=== PATIENT | female | born 1995 | race Caucasian/White ===

== ENCOUNTER → 2024-12-15 | Outpatient (CLI) | payer BC, SELFPAY ==
--- NOTE | 2024-12-15 12:47 | XR_ITS ---
Examination: Complete OB ultrasound, less than 14 weeks, transabdominal Date and time of exam: December 15, 2024 1304 hours INDICATIONS: Positive home test one week ago Technique: Obstetrical ultrasound images less than 14 weeks performed via transabdominal imaging Findings: A normal shaped single intrauterine gestation is present in the uterus. pole 2.3 cm corresponds to 9 week 0 day gestational age Cardiac motion 166 BPM Subchorionic hemorrhage 14 x 21 mm posterior and 30 x 31 mm anterior Ultrasonographic survey of visible and placental structures unremarkable. Amniotic fluid volume appears appropriate for this estimated gestational age. Right ovary 3.0 cm arterial flow follicular cyst Left ovary 1.9 cm arterial flow IMPRESSION: Viable intrauterine gestation 9 weeks 0 days Given the subchorionic hemorrhages, recommend short-term follow-up pelvic sonography.
== END | disposition home or self-care (01) ==
PROVIDERS: PCP Obstetrics & Gynecology; Referring Provider Obstetrics & Gynecology; Visit Provider Obstetrics & Gynecology
DX: Z34.90 Encounter for supervision of normal pregnancy, unspecified, unspecified trimester (principal)
CPT/HCPCS: 76801

== ENCOUNTER 2025-01-09 11:04 | Outpatient (AMB) | payer BC, SELFPAY ==
--- NOTE | 2025-01-09 11:04 | AMB.OBVISIT ---
Vital Signs 01/09/25 11:23 Height 1.52 m Height Method Stated Weight 44.225 kg Weight Measurement Method Standing Scale BMI 19.1 BP 100/68 Blood Pressure Source Automatic Cuff Blood Pressure Location Left Upper Arm Position Sitting Respiration 16 Pulse 103 H Pulse Source Monitor Temp 97.1 F Temp Source Oral Pulse Oximetry (%) 97 Oxygen Delivery Method Room Air Allergies/Home Meds Allergies & Medications Allergies No Known Allergies Allergy (Verified 01/09/25 11:06) Medication Reconciliation ondansetron HCl 4 mg tablet 4 mg PO Q6H PRN nausea and vomiting #30 tabs 12/15/24 [Rx Confirmed 01/09/25] promethazine 12.5 mg tablet 12.5 mg PO Q4H PRN nausea and vomiting #20 tabs 12/15/24 [Rx Confirmed 01/09/25] Intake Visit Data Collection New Patient or Established: Established Patient (seen at [facility] within 3 years) Reason for Visit:: 4-week OB visit Seen by Clinical Staff ONLY (RN/MA): No Gas Substation Operator Required: No Do You Feel Safe at Home: Yes Authorities Contacted: N/A PCP or OBGYN visit in last 3 months: Yes Date of Last PCP or OBGYN visit: 12/15/24 Hx Now: Yes Are you currently on any form of Control: No Last menstrual period: 10/11/24 Pain Present Currently: No Pain Scale Used: Ayala-[place]gl[place]/Numerical Pain scale:: 0 Smoking Status Smoking Status: Never smoker Questionnaires Covid-19 Vaccine Questionnaire Has patient been vacinated for Covid-19 Have you been vacinated for Covid-19: Yes PHQ-9 PHQ-2 Over the last 2 weeks, how often have you been bothered by any of the following problems? 1. Little interest or pleasure in doing things: not at all (due to nausea) 2. Feeling down, depressed, or hopeless: not at all Total score: 0 PHQ-9 3. Trouble falling or staying asleep, or sleeping too much: Not at all 4. Feeling tired or having little energy: Not at all 5. Poor appetite or overeating: Not at all 6. Feeling bad about yourself - or that you are a failure or have let yourself or your family down: Not at all 7. Trouble concentrating on things, such as reading the newspaper or watching television: Not at all 8. Moving or speaking so slowly that other people could have noticed? - Or the opposite - being so fidgety or restless that you have been moving around a lot more than usual: not at all 9. Thoughts that you would be better off or of hurting yourself in some way: Not at all Total score: 0 Source: Developed by Drs. Tj Bernal, Dory Mir, Manas Whitehead and colleagues, with an educational jessica from [employer]. 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 Smoking Status: Never smoker Alcohol History Alcohol Intake: Former Alcohol Intake Frequency: holidays/special occasions only Alcohol Intake Frequency Other:: [id number] Substance Use History Substance Use: no Domestic Abuse History Do You Feel Safe at Home: Yes Past Medical History Past Medical History Have you ever been diagnosed with any of the following: Neurological Problems Cerebrovascular Accident (CVA): No Transient Ischemic Attacks (TIA): No Dementia: No Alzheimer's Disease: No Parkinson's Disease: No Brain Tumor: No Meningitis: No Seizures: No Epilepsy: No Multiple Sclerosis: No Cerebral Palsy: No Amyotrophic Lateral Sclerosis (ALS/Tianna Gehrig's): No Guillain-Anson Syndrome: No Spina Bifida: No Paralysis: No Peripheral Neuropathy: No Mercado's Palsy: No Subdural Hematoma: No Migraine: No Head Trauma: No Spinal Cord Injury: No Traumatic Brain Injury: No Cardiology Problems Myocardial Infarction: No Cardiac Arrhythmia: No Atrial Fibrillation: No Angina: No Heart Murmur: No Coronary Artery Disease: No Atherosclerotic Heart Disease: No Peripheral Vascular Disease: No Hypercholesterolemia: No Respiratory Problems Chronic Obstructive Pulmonary Disease (COPD): No Stomache/Intestinal Problems Liver Cancer: No Hepatitis: No Cirrhosis: No Genital/Urinary Problems Chronic Kidney Disease: No Renal Disease: No Kidney Stones: No Reproductive Problems Breast Cancer: No Endometriosis: No Fibroids: No Genital Herpes: No Gonorrhea: No Pelvic Inflammatory Disease: No Polycystic Ovarian Syndrome: No Previous Pregnancies: Yes ( s/p x 2 in past. Has a 3 y/o son and 8 y/o daughter) Syphilis: No Musculoskeletal Problems Muscular Dystrophy: No Myasthenia Gravis: No Marfan's Syndrome: No Bone Cancer: No Arthritis: No Head,Eye,Nose,Throat Problems Cataracts: No Glaucoma: No Blind: No Retinal Detachment: No Endocrine Problems Diabetes Mellitus Type 1: No Diabetes Mellitus Type 2: No Hypoglycemia: No Karl's Syndrome: No Blakeslee's Disease: No Hyperthyroidism: No Hypothyroidism: No Thyroid Cancer: No Blood Problems Anemia: No Leukemia: No Hemophilia: No Thalassemia: No Sickle Cell Disease: No Clotting Problems: No Psychologic Problems Schizophrenia: No Recreational Drug Use: No Bipolar Disorder: No Depression: No Depression: No Post Traumatic Stress Disorder: No Other Problems Hospitalization: Yes Surgical History Angioplasty: No Appendectomy: No Bariatric Surgery: No History of Present Illness HPI Narrative Patient is a 29-year-old -0-0-2 presents for a 4-week OB visit due date is 07/22/2024 she is about 12-3/7 weeks today she stated that she went to the ER in [place] 12/18/2023 secondary severe nausea and vomiting she did bring her lab work sounds like she had 2 L of IV fluids and felt better. I placed the patient on Zofran and Phenergan before bed however they gave her Diclegis. Patient states the Diclegis to right before bed is working. She is feeling better. We still need to get her labs drawn. She does not want to know the gender at this baby. Review of Systems Constitutional Constitutional: Reports system reviewed and no additional complaints, except as documented Comments: Patient continues to have nausea but is better with the Diclegis right before bed. Patient gets very tired with the Diclegis but not nauseous. Visit DEDRA Calculator Estimated Delivery Date Method Current WG Current Estimate 07/21/25 LMP (Certain) 12w 3d Initial Weight: Not Recorded Date <del>?</del> EGA Weight Edema CTX Effacement BP Fundal ht Pres Dilation Effacement Station Visit Note Alb Glu FHR Mov 12/15/24 <del>?</del> 8w 6d 44.962 kg absent absent 105/76 140 01/09/25 <del>?</del> 12w 3d 44.225 kg 100/68 12 154 Exam General Limitations: no limitations General Appearance: alert, in no apparent distress, cooperative, healthy appearing and well groomed Assessment & Plan Diagnosis / Problem List (1) Nausea and vomiting during : Status: Acute Plan: Patient on Diclegis and this is much improved. (2) : Status: Acute Qualifiers: Weeks of gestation: 9 weeks Qualified Code(s): Z3A.09 - 9 weeks gestation of Plan: In need lab work on chart. Additional Plan Follow Up: 4 Weeks Office Procedures OB Clinic LOC & Office Proc's Nursing/Assessment Patient Status: Established Patient OB Clinic Nursing Assessment: Medication Reconciliation, Update PMH in EMR and Vital Signs OB Clinic Coordination of Care: Complex Care and Chronic Disease 1-5, Consent,records obtained, informed consent, Education Simp Pt/Fam, Lab and Imaging orders and Staff clarify orders Special Needs: Heart tones Established Patient Charge Established Patient Point Assignment: 130 Established Patient Point Charge: EP Level 4 (120-155) Bedside Ultrasounds US Transabdominal >14 weeks at bedside: Yes
[2025-01-09 11:23] VITALS: BP 100/68; PULSE 103; RESP 16; TEMP 36.2; O2SAT 97; BMI 19.1
== END 2025-01-09 11:56 | disposition home or self-care (01) ==
LOC: HODSOBC 11:04
PROVIDERS: Supervising Provider Obstetrics & Gynecology; Visit Provider Obstetrics & Gynecology
DX: O09.891 Supervision of other high risk pregnancies, first trimester (principal); Z3A.12 12 weeks gestation of pregnancy; O21.9 Vomiting of pregnancy, unspecified
CPT/HCPCS: 76805; 99214; G0463

== ENCOUNTER 2025-02-05 15:38 | Outpatient (AMB) | payer BC, SELFPAY ==
[2025-02-05 15:50] VITALS: BP 105/72; PULSE 89; RESP 16; TEMP 36.3; O2SAT 100
--- NOTE | 2025-02-05 15:50 | OBCLNT_ITS ---
Vital Signs 02/05/25 15:50 Height 1.52 m Height Method Stated Weight 46.266 kg Weight Measurement Method Standing Scale BMI 20.0 BP 105/72 Blood Pressure Source Automatic Cuff Blood Pressure Location Left Upper Arm Position Sitting Respiration 16 Pulse 89 Pulse Source Monitor Temp 97.4 F Temp Source Oral Pulse Oximetry (%) 100 Oxygen Delivery Method Room Air Allergies/Home Meds Allergies & Medications Allergies No Known Allergies Allergy (Verified 02/05/25 15:51) Medication Reconciliation ondansetron HCl 4 mg tablet 4 mg PO Q6H PRN nausea and vomiting #30 tabs 12/15/24 [Rx Confirmed 02/05/25] promethazine 12.5 mg tablet 12.5 mg PO Q4H PRN nausea and vomiting #20 tabs 12/15/24 [Rx Confirmed 02/05/25] doxylamine 10 mg-pyridoxine (vit B6) 10 mg tablet,delayed release (Diclegis) 1 tab PO TID #90 tabs 01/26/25 [Rx Confirmed 02/05/25] Intake Visit Data Collection New Patient or Established: Established Patient (seen at [facility] within 3 years) Reason for Visit:: care Seen by Clinical Staff ONLY (RN/MA): No Nuclear Medicine Pet Ct Technologist Required: No Do You Feel Safe at Home: Yes Authorities Contacted: N/A PCP or OBGYN visit in last 3 months: Yes Hx Now: Yes Are you currently on any form of Control: No Pain Present Currently: No Pain Scale Used: Ayala-[place]gl[place]/Numerical Pain scale:: 0 Smoking Status Smoking Status: Never smoker Questionnaires Covid-19 Vaccine Questionnaire Has patient been vacinated for Covid-19 Have you been vacinated for Covid-19: Yes PHQ-9 PHQ-2 Over the last 2 weeks, how often have you been bothered by any of the following problems? 1. Little interest or pleasure in doing things: not at all (due to nausea) 2. Feeling down, depressed, or hopeless: not at all Total score: 0 PHQ-9 3. Trouble falling or staying asleep, or sleeping too much: Not at all 4. Feeling tired or having little energy: Not at all 5. Poor appetite or overeating: Not at all 6. Feeling bad about yourself - or that you are a failure or have let yourself or your family down: Not at all 7. Trouble concentrating on things, such as reading the newspaper or watching television: Not at all 8. Moving or speaking so slowly that other people could have noticed? - Or the opposite - being so fidgety or restless that you have been moving around a lot more than usual: not at all 9. Thoughts that you would be better off or of hurting yourself in some way: Not at all Total score: 0 Source: Developed by Drs. Tj Bernal, Dory Mir, Manas Whitehead and colleagues, with an educational jessica from [employer]. 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 Tobacco History Smoking Status: Never smoker Second Hand Smoke Exposure: No Alcohol History Alcohol Intake: Former Alcohol Intake Frequency: holidays/special occasions only Alcohol Intake Frequency Other:: [id number] Substance Use History Substance Use: no Domestic Abuse History Do You Feel Safe at Home: Yes Past Medical History Past Medical History Have you ever been diagnosed with any of the following: Neurological Problems Cerebrovascular Accident (CVA): No Transient Ischemic Attacks (TIA): No Dementia: No Alzheimer's Disease: No Parkinson's Disease: No Brain Tumor: No Meningitis: No Seizures: No Epilepsy: No Multiple Sclerosis: No Cerebral Palsy: No Amyotrophic Lateral Sclerosis (ALS/Tianna Gehrig's): No Guillain-Randolph Syndrome: No Spina Bifida: No Paralysis: No Peripheral Neuropathy: No Mercado's Palsy: No Subdural Hematoma: No Migraine: No Head Trauma: No Spinal Cord Injury: No Traumatic Brain Injury: No Cardiology Problems Myocardial Infarction: No Cardiac Arrhythmia: No Atrial Fibrillation: No Angina: No Heart Murmur: No Coronary Artery Disease: No Atherosclerotic Heart Disease: No Peripheral Vascular Disease: No Hypercholesterolemia: No Respiratory Problems Chronic Obstructive Pulmonary Disease (COPD): No Stomache/Intestinal Problems Liver Cancer: No Hepatitis: No Cirrhosis: No Genital/Urinary Problems Renal Disease: No Kidney Stones: No Reproductive Problems Breast Cancer: No Endometriosis: No Fibroids: No Genital Herpes: No Gonorrhea: No Pelvic Inflammatory Disease: No Polycystic Ovarian Syndrome: No Previous Pregnancies: Yes ( s/p x 2 in past. Has a 3 y/o son and 8 y/o daughter) Syphilis: No Musculoskeletal Problems Muscular Dystrophy: No Myasthenia Gravis: No Marfan's Syndrome: No Bone Cancer: No Arthritis: No Head,Eye,Nose,Throat Problems Cataracts: No Glaucoma: No Blind: No Retinal Detachment: No Endocrine Problems Diabetes Mellitus Type 1: No Diabetes Mellitus Type 2: No Hypoglycemia: No [place]'s Syndrome: No [place]'s Disease: No Hyperthyroidism: No Hypothyroidism: No Thyroid Cancer: No Blood Problems Anemia: No Leukemia: No Hemophilia: No Thalassemia: No Sickle Cell Disease: No Clotting Problems: No Psychologic Problems Schizophrenia: No Recreational Drug Use: No Bipolar Disorder: No Depression: No Depression: No Post Traumatic Stress Disorder: No Other Problems Hospitalization: Yes Surgical History Angioplasty: No Appendectomy: No Bariatric Surgery: No Visit DEDRA Calculator Estimated Delivery Date Method Current WG Current Estimate 07/21/25 LMP (Certain) 16w 6d Initial Weight: Not Recorded Date -?-?-?-?-?-?-?-?-?-?-?-?- EGA Weight Edema CTX Effacement BP Fundal ht Pres Dilation Effacement Station Visit Note Alb Glu FHR Mov 12/15/24 -?-?-?-?-?-?-?-?-?-?-?-?- 8w 6d 44.962 kg absent absent 105/76 140 01/09/25 -?-?-?-?-?-?-?-?-?-?-?-?- 12w 3d 44.225 kg 100/68 12 154 02/05/25 -?-?-?-?-?-?-?-?-?-?-?-?- 16w 2d 46.266 kg 105/72 17 145 active Notes Visit Date: 02/05/25 Last Updated by: Yasmine Cesar (OB Clinic)MD Pt reports good FM. Finally has less nausea and vomiting No complaints Office Procedures OB Clinic LOC & Office Proc's Nursing/Assessment Patient Status: Established Patient OB Clinic Nursing Assessment: Medication Reconciliation, Update PMH in EMR and Vital Signs OB Clinic Coordination of Care: Complex Care and Chronic Disease 1-5, Consent,records obtained, informed consent, Education Simp Pt/Fam and Staff clarify orders Special Needs: Heart tones Established Patient Charge Established Patient Point Assignment: 115 Established Patient Point Charge: Level 3 (29-589)
== END 2025-02-05 16:13 | disposition home or self-care (01) ==
LOC: HODSOBC 15:38
PROVIDERS: Supervising Provider Obstetrics & Gynecology; Visit Provider Obstetrics & Gynecology
DX: O21.8 Other vomiting complicating pregnancy (principal); Z3A.16 16 weeks gestation of pregnancy
CPT/HCPCS: 99213; G0463

== ENCOUNTER 2025-03-11 15:33 | Outpatient (AMB) | payer BC, SELFPAY ==
[2025-03-11 15:45] VITALS: BP 109/68; PULSE 99; RESP 18; TEMP 36.4; O2SAT 99; BMI 20.7
--- NOTE | 2025-03-11 15:45 | AMB.OBVISIT ---
Vital Signs 03/11/25 15:45 Height 1.52 m Height Method Stated Weight 47.797 kg Weight Measurement Method Standing Scale BMI 20.7 BP 109/68 Blood Pressure Source Automatic Cuff Blood Pressure Location Right Upper Arm Position Sitting Respiration 18 Pulse 99 Pulse Source Monitor Temp 97.5 F Temp Source Oral Pulse Oximetry (%) 99 Oxygen Delivery Method Room Air Allergies/Home Meds Allergies & Medications Allergies No Known Allergies Allergy (Verified 03/11/25 15:46) Medication Reconciliation ondansetron HCl 4 mg tablet 4 mg PO Q6H PRN nausea and vomiting #30 tabs 12/15/24 [Rx Confirmed 03/11/25] promethazine 12.5 mg tablet 12.5 mg PO Q4H PRN nausea and vomiting #20 tabs 12/15/24 [Rx Confirmed 03/11/25] doxylamine 10 mg-pyridoxine (vit B6) 10 mg tablet,delayed release (Diclegis) 1 tab PO TID #90 tabs 01/26/25 [Rx Confirmed 03/11/25] Intake Visit Data Collection New Patient or Established: Established Patient (seen at [facility] within 3 years) Reason for Visit:: CARE Seen by Clinical Staff ONLY (RN/MA): No Datastage Consultant Required: No Do You Feel Safe at Home: Yes Authorities Contacted: N/A PCP or OBGYN visit in last 3 months: Yes Hx Now: Yes Pain Present Currently: No Pain Scale Used: Ayala-[place]glin/Numerical Pain scale:: 0 Smoking Status Smoking Status: Never smoker Questionnaires Covid-19 Vaccine Questionnaire Has patient been vacinated for Covid-19 Have you been vacinated for Covid-19: Yes PHQ-9 PHQ-2 Over the last 2 weeks, how often have you been bothered by any of the following problems? 1. Little interest or pleasure in doing things: not at all 2. Feeling down, depressed, or hopeless: not at all Total score: 0 PHQ-9 3. Trouble falling or staying asleep, or sleeping too much: Not at all 4. Feeling tired or having little energy: Not at all 5. Poor appetite or overeating: Not at all 6. Feeling bad about yourself - or that you are a failure or have let yourself or your family down: Not at all 7. Trouble concentrating on things, such as reading the newspaper or watching television: Not at all 8. Moving or speaking so slowly that other people could have noticed? - Or the opposite - being so fidgety or restless that you have been moving around a lot more than usual: not at all 9. Thoughts that you would be better off or of hurting yourself in some way: Not at all Total score: 0 Source: Developed by Drs. Tj Bernal, Dory Mir, Manas Whitehead and colleagues, with an educational jessica from [employer]. 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 Smoking Status: Never smoker Second Hand Smoke Exposure: No Alcohol History Alcohol Intake: Former Alcohol Intake Frequency: holidays/special occasions only Alcohol Intake Frequency Other:: [id number] Substance Use History Substance Use: no Domestic Abuse History Do You Feel Safe at Home: Yes Past Medical History Past Medical History Have you ever been diagnosed with any of the following: Neurological Problems Cerebrovascular Accident (CVA): No Transient Ischemic Attacks (TIA): No Dementia: No Alzheimer's Disease: No Parkinson's Disease: No Brain Tumor: No Meningitis: No Seizures: No Epilepsy: No Multiple Sclerosis: No Cerebral Palsy: No Amyotrophic Lateral Sclerosis (ALS/Tianna Gehrig's): No Guillain-[place] Syndrome: No Spina Bifida: No Paralysis: No Peripheral Neuropathy: No Mercado's Palsy: No Subdural Hematoma: No Migraine: No Head Trauma: No Spinal Cord Injury: No Traumatic Brain Injury: No Cardiology Problems Myocardial Infarction: No Cardiac Arrhythmia: No Atrial Fibrillation: No Angina: No Heart Murmur: No Coronary Artery Disease: No Atherosclerotic Heart Disease: No Peripheral Vascular Disease: No Hypercholesterolemia: No Respiratory Problems Chronic Obstructive Pulmonary Disease (COPD): No Stomache/Intestinal Problems Liver Cancer: No Hepatitis: No Cirrhosis: No Genital/Urinary Problems Renal Disease: No Kidney Stones: No Reproductive Problems Breast Cancer: No Endometriosis: No Fibroids: No Genital Herpes: No Gonorrhea: No Pelvic Inflammatory Disease: No Polycystic Ovarian Syndrome: No Previous Pregnancies: Yes ( s/p x 2 in past. Has a 3 y/o son and 8 y/o daughter) Syphilis: No Musculoskeletal Problems Muscular Dystrophy: No Myasthenia Gravis: No Marfan's Syndrome: No Bone Cancer: No Arthritis: No Head,Eye,Nose,Throat Problems Cataracts: No Glaucoma: No Blind: No Retinal Detachment: No Endocrine Problems Diabetes Mellitus Type 1: No Diabetes Mellitus Type 2: No Hypoglycemia: No Karl's Syndrome: No Gilliam's Disease: No Hyperthyroidism: No Hypothyroidism: No Thyroid Cancer: No Blood Problems Anemia: No Leukemia: No Hemophilia: No Thalassemia: No Sickle Cell Disease: No Clotting Problems: No Psychologic Problems Schizophrenia: No Recreational Drug Use: No Bipolar Disorder: No Depression: No Depression: No Post Traumatic Stress Disorder: No Other Problems Hospitalization: Yes Surgical History Angioplasty: No Appendectomy: No Bariatric Surgery: No Care OB Visit Log OB Flowsheet Initial Weight: Not Recorded Date <del>?</del> EGA Weight Edema CTX Effacement BP Fundal ht Pres Dilation Effacement Station Visit Note Alb Glu FHR Mov 12/15/24 <del>?</del> 8w 6d 44.962 kg absent absent 105/76 140 01/09/25 <del>?</del> 12w 3d 44.225 kg 100/68 12 154 02/05/25 <del>?</del> 16w 2d 46.266 kg 105/72 17 145 active 03/11/25 <del>?</del> 21w 1d 47.797 kg 109/68 21 Still taking Diclegis at nighttime but nausea much better 137 active DEDRA Calculator Estimated Delivery Date Method Current WG Current Estimate 07/21/25 LMP (Certain) 21w 1d Comments: -0-0-2 patient has a 3-year-old son and an 8-year-old daughter. Expected Delivery Route/Plan History of vaginal delivery x 2 in the past with epidurals. Anticipate Notes Visit Date: 03/11/25 Last Updated by: Yasmine Cesar (OB Clinic)MD Patient tried to get labs drawn but the form was filled out 1. She will go to [facility] in [place] and form is filled out correctly today. She had an ultrasound in [place] at [facility] and I do not have the results yet this was from 03/02/2025. Visit Date: 02/05/25 Last Updated by: Yasmine Cesar (OB Clinic)MD Pt reports good FM. Finally has less nausea and vomiting No complaints Office Procedures OB Clinic LOC & Office Proc's Nursing/Assessment Patient Status: Established Patient OB Clinic Nursing Assessment: Medication Reconciliation, Update PMH in EMR and Vital Signs OB Clinic Coordination of Care: Complex Care and Chronic Disease 1-5, Consent,records obtained, informed consent, Education Simp Pt/Fam, Results/Orders obtained and Staff clarify orders Special Needs: Heart tones Miscellaneous Interventions: Blood/Urine Collection Established Patient Charge Established Patient Point Assignment: 150 Established Patient Point Charge: EP Level 4 (120-155)
== END 2025-03-11 16:28 | disposition home or self-care (01) ==
LOC: HODSOBC 15:33
PROVIDERS: Supervising Provider Obstetrics & Gynecology; Visit Provider Obstetrics & Gynecology
DX: Z34.82 Encounter for supervision of other normal pregnancy, second trimester (principal); Z3A.21 21 weeks gestation of pregnancy
CPT/HCPCS: 99214; G0463

== ENCOUNTER 2025-04-15 14:42 | Outpatient (AMB) | payer BC, SELFPAY | END 2025-04-15 15:09 | disposition home or self-care (01) | LOC: HODSOBC 14:42 | PROVIDERS: Supervising Provider Obstetrics & Gynecology; Visit Provider Obstetrics & Gynecology ==

== ENCOUNTER 2025-05-22 11:20 | Outpatient (AMB) | payer BC, SELFPAY ==
[2025-05-22 11:43] VITALS: BP 97/61; PULSE 81; RESP 15; TEMP 36.6; O2SAT 98; BMI 21.8
--- NOTE | 2025-05-22 11:43 | AMB.OBVISIT ---
Vital Signs 05/22/25 11:43 Height 1.52 m Height Method Stated Weight 50.462 kg Weight Measurement Method Standing Scale BMI 21.8 BP 97/61 Blood Pressure Source Automatic Cuff Blood Pressure Location Left Upper Arm Position Sitting Respiration 15 Pulse 81 Pulse Source Monitor Temp 97.8 F Temp Source Oral Pulse Oximetry (%) 98 Oxygen Delivery Method Room Air Allergies/Home Meds Allergies & Medications Allergies No Known Allergies Allergy (Verified 06/03/25 13:35) Medication Reconciliation ondansetron HCl 4 mg tablet 4 mg PO Q6H PRN nausea and vomiting #30 tabs 12/15/24 [Rx Confirmed 06/03/25] promethazine 12.5 mg tablet 12.5 mg PO Q4H PRN nausea and vomiting #20 tabs 12/15/24 [Rx Confirmed 06/03/25] doxylamine 10 mg-pyridoxine (vit B6) 10 mg tablet,delayed release (Diclegis) 1 tab PO TID #90 tabs 01/26/25 [Rx Confirmed 06/03/25] Intake Visit Data Collection New Patient or Established: Established Patient (seen at [facility] within 3 years) Reason for Visit:: CARE Seen by Clinical Staff ONLY (RN/MA): No District Engineer Required: No Do You Feel Safe at Home: Yes Authorities Contacted: N/A PCP or OBGYN visit in last 3 months: Yes Hx Now: Yes Are you currently on any form of Control: No Pain Present Currently: No Pain Scale Used: Ayala-Anglin/Numerical Pain scale:: 0 Smoking Status Smoking Status: Never smoker Questionnaires Covid-19 Vaccine Questionnaire Has patient been vacinated for Covid-19 Have you been vacinated for Covid-19: Yes PHQ-9 PHQ-2 Over the last 2 weeks, how often have you been bothered by any of the following problems? 1. Little interest or pleasure in doing things: not at all 2. Feeling down, depressed, or hopeless: not at all Total score: 0 PHQ-9 3. Trouble falling or staying asleep, or sleeping too much: Not at all 4. Feeling tired or having little energy: Not at all 5. Poor appetite or overeating: Not at all 6. Feeling bad about yourself - or that you are a failure or have let yourself or your family down: Not at all 7. Trouble concentrating on things, such as reading the newspaper or watching television: Not at all 8. Moving or speaking so slowly that other people could have noticed? - Or the opposite - being so fidgety or restless that you have been moving around a lot more than usual: not at all 9. Thoughts that you would be better off or of hurting yourself in some way: Not at all Total score: 0 Source: Developed by Drs. Tj Bernal, Dory Mir, Manas Whitehead and colleagues, with an educational jessica from [employer]. 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: Past Medical History Past Medical History: No Hx Hypothyroidism, No Hx Hyperthyroidism, No Hx Breast Cancer, No Hx Anemia, No Hx Renal Disease, No Hx Diabetes Mellitus Type 1, No Hx Diabetes Mellitus Type 2 and No Hx Polycystic Ovarian Syndrome Care OB Visit Log OB Flowsheet Initial Weight: Not Recorded Date <del>?</del> EGA Weight BP Alb Glu CTX Pres Fundal ht FHR Mov Dilation Station Effacement Hx Notes Visit Note 12/15/24 <del>?</del> 9w 0d 44.962 kg 105/76 absent 140 01/09/25 <del>?</del> 12w 4d 44.225 kg 100/68 12 154 02/05/25 <del>?</del> 16w 3d 46.266 kg 105/72 17 145 active 03/11/25 <del>?</del> 21w 2d 47.797 kg 109/68 21 137 active Still taking Diclegis at nighttime but nausea much better 05/22/25 <del>?</del> 31w 4d 50.462 kg 97/61 absent 32 active +FM, No UCs or LOF US for size at 35 weeks 06/03/25 <del>?</del> 33w 2d 53.524 kg 109/68 absent 33 134 active Complains of low back pain. Reports nausea is better but she is still taking the Diclegis at nighttime. OB sono for growth was done at [facility] yesterday. Reports pending. Denies leaking. Denies bleeding. Denies contractions. Reports good movement Follow-up with Dr. Merritt in 2 weeks. Increase fluids. Discussed comfort measures for backache. Continue Diclegis. Return in 2 weeks DEDRA Calculator Estimated Delivery Date Method Current WG Current Estimate 07/20/25 Ultrasound #1 34w 1d Other Estimates 07/21/25 LMP (Certain) 34w 0d Expected Delivery Route/Plan History of vaginal delivery x 2 in the past with epidurals. Anticipate Specific Issue/Plans Need structural Survey from [facility] on chart Notes Visit Date: 05/22/25 Last Updated by: Yasmine Cesar (OB Clinic)MD PNC labs from 03/19/25 on chart: O+/Ab-/RI/RPR NR/HIV-/HepBSag-/GC-/Chlam-/Hgb 11.4/Hct 35.3 Urine Visit Date: 03/11/25 Last Updated by: Yasmine Cesar (OB Clinic)MD Patient tried to get labs drawn but the form was filled out 1. She will go to [facility] in [place] and form is filled out correctly today. She had an ultrasound in [place] at [facility] and I do not have the results yet this was from 03/02/2025. Visit Date: 02/05/25 Last Updated by: Yasmine Cesar (OB Clinic)MD Pt reports good FM. Finally has less nausea and vomiting No complaints Office Procedures OB Clinic LOC & Office Proc's Nursing/Assessment Patient Status: Established Patient OB Clinic Nursing Assessment: Medication Reconciliation, Update PMH in EMR and Vital Signs OB Clinic Coordination of Care: Complex Care and Chronic Disease 1-5, Consent,records obtained, informed consent, Education Simp Pt/Fam, Lab and Imaging orders, Results/Orders obtained and Staff clarify orders Special Needs: Heart tones Established Patient Charge Established Patient Point Assignment: 135 Established Patient Point Charge: EP Level 4 (120-155)
== END 2025-05-22 12:06 | disposition home or self-care (01) ==
LOC: HODSOBC 11:20
PROVIDERS: Supervising Provider Obstetrics & Gynecology; Visit Provider Obstetrics & Gynecology
DX: Z34.83 Encounter for supervision of other normal pregnancy, third trimester (principal); Z3A.31 31 weeks gestation of pregnancy
CPT/HCPCS: 99214; G0463

== ENCOUNTER 2025-06-03 13:16 | Outpatient (AMB) | payer BC, SELFPAY ==
[2025-06-03 13:33] VITALS: BP 109/68; PULSE 93; RESP 17; TEMP 36.8; O2SAT 99; BMI 23.1
--- NOTE | 2025-06-03 13:33 | OBCLNT_ITS ---
Vital Signs 06/03/25 13:33 Height 1.52 m Height Method Stated Weight 53.524 kg Weight Measurement Method Standing Scale BMI 23.1 BP 109/68 Blood Pressure Source Automatic Cuff Blood Pressure Location Right Upper Arm Position Sitting Respiration 17 Pulse 93 Pulse Source Monitor Temp 98.2 F Temp Source Temporal Artery Scan Pulse Oximetry (%) 99 Oxygen Delivery Method Room Air Allergies/Home Meds Allergies & Medications Allergies No Known Allergies Allergy (Verified 06/03/25 13:35) Medication Reconciliation ondansetron HCl 4 mg tablet 4 mg PO Q6H PRN nausea and vomiting #30 tabs 02 [Rx Confirmed 06/03/25] promethazine 12.5 mg tablet 12.5 mg PO Q4H PRN nausea and vomiting #20 tabs 12/15/24 [Rx Confirmed 06/03/25] doxylamine 10 mg-pyridoxine (vit B6) 10 mg tablet,delayed release (Diclegis) 1 tab PO TID #90 tabs 01/26/25 [Rx Confirmed 06/03/25] Intake Visit Data Collection New Patient or Established: Established Patient (seen at [facility] within 3 years) Reason for Visit:: [facility] 33W1D Seen by Clinical Staff ONLY (RN/MA): No Nurse Practitioner Adult Required: No Do You Feel Safe at Home: Yes Authorities Contacted: N/A PCP or OBGYN visit in last 3 months: Yes Date of Last PCP or OBGYN visit: 05/22/25 Hx Now: Yes Are you currently on any form of Control: No Pain Present Currently: No Pain Scale Used: Ayala-Anglin/Numerical Pain scale:: 0 Smoking Status Smoking Status: Never smoker Questionnaires Covid-19 Vaccine Questionnaire Has patient been vacinated for Covid-19 Have you been vacinated for Covid-19: No PHQ-9 PHQ-2 Over the last 2 weeks, how often have you been bothered by any of the following problems? 1. Little interest or pleasure in doing things: not at all 2. Feeling down, depressed, or hopeless: not at all Total score: 0 PHQ-9 3. Trouble falling or staying asleep, or sleeping too much: Not at all 4. Feeling tired or having little energy: Not at all 5. Poor appetite or overeating: Not at all 6. Feeling bad about yourself - or that you are a failure or have let yourself or your family down: Not at all 7. Trouble concentrating on things, such as reading the newspaper or watching television: Not at all 8. Moving or speaking so slowly that other people could have noticed? - Or the opposite - being so fidgety or restless that you have been moving around a lot more than usual: not at all 9. Thoughts that you would be better off or of hurting yourself in some way: Not at all Total score: 0 If you checked off any problems, how difficult have these problems made it for you to do your work, take care of things at home, or get along with other people?: not difficult at all Source: Developed by Drs. Tj Bernal, Dory Mir, Manas Whitehead and colleagues, with an educational jessica from [employer]. 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 Medical History Past Medical History: No Hx Hypothyroidism, No Hx Hyperthyroidism, No Hx Breast Cancer, No Hx Anemia, No Hx Renal Disease, No Hx Diabetes Mellitus Type 1, No Hx Diabetes Mellitus Type 2 and No Hx Polycystic Ovarian Syndrome Care OB Visit Log OB Flowsheet Initial Weight: Not Recorded Date -?-?-?-?-?-?-?-?-?-?-?-?- EGA Weight BP Alb Glu CTX Pres Fundal ht FHR Mov Dilation Station Effac ement Hx Notes Visit Note 12/15/24 -?-?-?-?-?-?-?-?-?-?-?-?- 9w 0d 44.962 kg 105/76 absent 140 01/09/25 -?-?-?-?-?-?-?-?-?-?-?-?- 12w 4d 44.225 kg 100/68 12 154 02/05/25 -?-?-?-?-?-?-?-?-?-?-?-?- 16w 3d 46.266 kg 105/72 17 145 active 03/11/25 -?-?-?-?-?-?-?-?-?-?-?-?- 21w 2d 47.797 kg 109/68 21 137 active Still taking Diclegis at nighttime but nausea much better 06/03/25 -?-?-?-?-?-?-?-?-?-?-?-?- 33w 2d 53.524 kg 109/68 absent 33 134 ac tive Complains of low back pain. Reports nausea is better but she is still taking the Diclegis at nighttime. OB sono for growth was done at [facility] yesterday. Reports pending. Den ies leaking. Denies bleeding. Denies contractions. Reports good movement Follow-up with Blanca Merritt in 2 weeks. Increase fluids. Discussed comfort measures for backache. Continue Diclegis. Return in 2 weeks DEDRA Calculator Estimated Delivery Date Method Current WG Current Estimate 07/20/25 Ultrasound #1 33w 2d Other Estimates 07/21/25 LMP (Certain) 33w 1d Expected Delivery Route/Plan History of vaginal delivery x 2 in the past with epidurals. Anticipate Notes Visit Date: 03/11/25 Last Updated by: Yasmine Cesar (OB Clinic)MD Patient tried to get labs drawn but the form was filled out 1. [facility] [place] and form is filled out correctly today. She had an ultrasound in [place] at [facility] and I do not have the results yet this was from 03/02/2025. Visit Date: 02/05/25 Last Updated by: Yasmine Cesar (OB Clinic)MD Pt reports good FM. Finally has less nausea and vomiting No complaints Office Procedures OB Clinic LOC & Office Proc's Nursing/Assessment Patient Status: Established Patient OB Clinic Nursing Assessment: Medication Reconciliation, Update PMH in EMR and Vital Signs OB Clinic Coordination of Care: Complex Care and Chronic Disease 1-5, Consent,records obtained, informed consent, Education Simp Pt/Fam and Staff clarify orders Special Needs: Heart tones Established Patient Charge Established Patient Point Assignment: 115 Established Patient Point Charge: EP Level 3 (80-115) Assessment & Plan Diagnosis / Problem List (1) Encounter for supervision of high risk in third trimester, antepartum: Status: Acute Plan Follow-up with Dr. Greer in 2 weeks. Discussed labor precautions. Discussed kick count twice a day. Continue to drink fluids. Additional Plan Follow Up: 2 Weeks (obc)
== END 2025-06-03 13:49 | disposition home or self-care (01) ==
LOC: HODSOBC 13:16
PROVIDERS: Supervising Provider Advanced Practice Midwife; Visit Provider Advanced Practice Midwife
DX: O09.893 Supervision of other high risk pregnancies, third trimester (principal); O99.891 Other specified diseases and conditions complicating pregnancy; M54.50 Low back pain, unspecified; Z3A.33 33 weeks gestation of pregnancy
CPT/HCPCS: 99213; G0463

== ENCOUNTER 2025-06-17 13:09 | Outpatient (AMB) | payer BC, SELFPAY ==
[2025-06-17 13:23] VITALS: BP 108/72; PULSE 20; RESP 99; TEMP 36.4; O2SAT 98; BMI 23.3
--- NOTE | 2025-06-17 13:23 | OBCLNT_ITS ---
Vital Signs 06/17/25 13:23 Height 1.52 m Height Method Stated Weight 54.034 kg Weight Measurement Method Standing Scale BMI 23.3 BP 108/72 Blood Pressure Source Automatic Cuff Blood Pressure Location Left Upper Arm Position Sitting Respiration 99 H Pulse 20 L Pulse Source Monitor Temp 97.5 F Temp Source Oral Pulse Oximetry (%) 98 Oxygen Delivery Method Room Air Allergies/Home Meds Allergies & Medications Allergies No Known Allergies Allergy (Verified 06/17/25 13:24) Medication Reconciliation ondansetron HCl 4 mg tablet 4 mg PO Q6H PRN nausea and vomiting #30 tabs 12/15/24 [Rx Confirmed 06/17/25] promethazine 12.5 mg tablet 12.5 mg PO Q4H PRN nausea and vomiting #20 tabs 12/15/24 [Rx Confirmed 06/17/25] doxylamine 10 mg-pyridoxine (vit B6) 10 mg tablet,delayed release (Diclegis) 1 tab PO TID #90 tabs 01/26/25 [Rx Confirmed 06/17/25] Intake Visit Data Collection New Patient or Established: Established Patient (seen at [facility] within 3 years) Reason for Visit:: CARE Seen by Clinical Staff ONLY (RN/MA): No Sample Card Maker Required: No Do You Feel Safe at Home: Yes Authorities Contacted: N/A PCP or OBGYN visit in last 3 months: Yes Hx Now: Yes Are you currently on any form of Control: No Pain Present Currently: No Pain Scale Used: Ayala-Anglin/Numerical Pain scale:: 0 Smoking Status Smoking Status: Never smoker Questionnaires Covid-19 Vaccine Questionnaire Has patient been vacinated for Covid-19 Have you been vacinated for Covid-19: Yes PHQ-9 PHQ-2 Over the last 2 weeks, how often have you been bothered by any of the following problems? 1. Little interest or pleasure in doing things: not at all 2. Feeling down, depressed, or hopeless: not at all Total score: 0 PHQ-9 3. Trouble falling or staying asleep, or sleeping too much: Not at all 4. Feeling tired or having little energy: Not at all 5. Poor appetite or overeating: Not at all 6. Feeling bad about yourself - or that you are a failure or have let yourself or your family down: Not at all 7. Trouble concentrating on things, such as reading the newspaper or watching television: Not at all 8. Moving or speaking so slowly that other people could have noticed? - Or the opposite - being so fidgety or restless that you have been moving around a lot more than usual: not at all 9. Thoughts that you would be better off or of hurting yourself in some way: Not at all Total score: 0 Source: Developed by Drs. Tj eBrnal, Dory Mir, Manas Whitehead and colleagues, with an educational jessica from [employer]. 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 History Past Medical History: No Hx Hypothyroidism, No Hx Hyperthyroidism, No Hx Breast Cancer, No Hx Anemia, No Hx Renal Disease, No Hx Diabetes Mellitus Type 1, No Hx Diabetes Mellitus Type 2 and No Hx Polycystic Ovarian Syndrome Care OB Visit Log OB Flowsheet Initial Weight: Not Recorded Date -?-?-?-?-?-?-?-?-?-?-?-?- EGA Weight BP Alb Glu CTX Pres Fundal ht FHR Mov Dilation Station Effacement Hx Notes Visit Note 12/15/24 -?-?-?-?-?-?-?-?-?-?-?-?- 9w 0d 44.962 kg 105/76 absent 140 01/09/25 -?-?-?-?-?-?-?-?-?-?-?-?- 12w 4d 44.225 kg 100/68 12 154 02/05/25 -?-?-?-?-?-?-?-?-?-?-?-?- 16w 3d 46.266 kg 105/72 17 145 active 03/11/25 -?-?-?-?-?-?-?-?-?-?-?-?- 21w 2d 47.797 kg 109/68 21 137 active Still taking Diclegis at nighttime but nausea much better 05/22/25 -?-?-?-?-?-?-?-?-?-?-?-?- 31w 4d 50.462 kg 97/61 absent 32 active +FM, No UCs or LOF US for size at 35 weeks 06/03/25 -?-?-?-?-?-?-?-?-?-?-?-?- 33w 2d 53.524 kg 109/68 absent 33 134 ac timiriam Complains of low back pain. Reports nausea is better but she is still taking the Diclegis at nighttime. OB sono for growth was done at [facility] yesterday. Reports pending. Denies leaking. Denies bleeding. Denies contractions. Reports good movement Follow-up with Blanca Merritt in 2 weeks. Increase fluids. Discussed comfort measures for backache. Continue Diclegis. Return in 2 weeks Follow-up with Dr. Cesar in 2 weeks. Increase fluids. Discussed comfort measures for backache. Continue Diclegis. Return in 2 weeks 06/17/25 -?-?-?-?-?-?-?-?-?-?-?-?- 35w 2d 54.034 kg 108/72 occasional 35 156 active Good movement no contractions or bleeding Group B strep done. Patient declined that exam. DEDRA Calculator Estimated Delivery Date Method Current WG Current Estimate 07/20/25 Ultrasound #1 35w 2d Other Estimates 07/21/25 LMP (Certain) 35w 1d Expected Delivery Route/Plan History of vaginal delivery x 2 in the past with epidurals. Anticipate Specific Issue/Plans Need structural Survey from [facility] on chart Notes Visit Date: 06/17/25 Last Updated by: Yasmine Cesar (OB Clinic)MD -0-0-2 status post vaginal delivery x 2. Epidural x 2. No complications. Babies weighed 6 and 7 pounds. Glucose challenge test at [facility]. Visit Date: 06/03/25 Last Updated by: Yasmine Cesar (OB Clinic)MD Ultrasound from [place] [facility] in [place] reviewed from 06/02/2025 single intrauterine in the cephalic presentation no placenta previa placenta is anterior DEVON 13.7 EGA 33-5/7 weeks EDC 07/16/2025on US estimated weight 2215g 62nd percentile. anatomy normal gender is female. Visit Date: 05/22/25 Last Updated by: Yasmine Cesar (OB Clinic)MD PNC labs from 03/19/25 on chart: O+/Ab-/RI/RPR NR/HIV-/HepBSag-/GC-/Chlam-/Hgb 11.4/Hct 35.3 Urine Visit Date: 03/11/25 Last Updated by: Yasmine Cesar (OB Clinic)MD Patient tried to get labs drawn but the form was filled out 1. [facility] [place] and form is filled out correctly today. She had an ultrasound in [place] at [facility] and I do not have the results yet this was from 03/02/2025. Visit Date: 02/05/25 Last Updated by: Yasmine Cesar (OB Clinic)MD Pt reports good FM. Finally has less nausea and vomiting No complaints Office Procedures OB Clinic LOC & Office Proc's Nursing/Assessment Patient Status: Established Patient OB Clinic Nursing Assessment: Medication Reconciliation, Update PMH in EMR and Vital Signs OB Clinic Coordination of Care: Complex Care and Chronic Disease 1-5, Consent,records obtained, informed consent, Education Simp Pt/Fam, Lab and Imaging orders, Results/Orders obtained and Staff clarify orders Special Needs: Heart tones Miscellaneous Interventions: Culture Specimen Collection Established Patient Charge Established Patient Point Assignment: 150 Established Patient Point Charge: EP Level 4 (120-155) Assessment & Plan Diagnosis / Problem List (1) : Status: Acute Qualifiers: Weeks of gestation: 35 weeks Qualified Code(s): Z3A.35 - 35 weeks gestation of Plan: Group B strep drawn today. The patient declined exam. Follow-up in 1 week.
== END 2025-06-17 13:52 | disposition home or self-care (01) ==
LOC: HODSOBC 13:09
PROVIDERS: Supervising Provider Obstetrics & Gynecology; Visit Provider Obstetrics & Gynecology
DX: Z34.83 Encounter for supervision of other normal pregnancy, third trimester (principal); Z3A.35 35 weeks gestation of pregnancy; Z36.85 Encounter for antenatal screening for Streptococcus B
CPT/HCPCS: 99214; G0463

== ENCOUNTER 2025-06-24 08:12 | Outpatient (AMB) | payer BC, SELFPAY ==
[2025-06-24 08:23] VITALS: BP 111/73; PULSE 103; RESP 18; TEMP 36.5; O2SAT 98; BMI 23.6
--- NOTE | 2025-06-24 08:23 | OBCLNT_ITS ---
Vital Signs 06/24/25 08:23 Height 1.52 m Height Method Stated Weight 54.488 kg Weight Measurement Method Standing Scale BMI 23.6 BP 111/73 Blood Pressure Source Automatic Cuff Blood Pressure Location Left Upper Arm Position Sitting Respiration 18 Pulse 103 H Pulse Source Monitor Temp 97.7 F Temp Source Oral Pulse Oximetry (%) 98 Oxygen Delivery Method Room Air Allergies/Home Meds Allergies & Medications Allergies No Known Allergies Allergy (Verified 06/24/25 08:24) Medication Reconciliation ondansetron HCl 4 mg tablet 4 mg PO Q6H PRN nausea and vomiting #30 tabs 12/15/24 [Rx Confirmed 06/24/25] promethazine 12.5 mg tablet 12.5 mg PO Q4H PRN nausea and vomiting #20 tabs 12/15/24 [Rx Confirmed 06/24/25] doxylamine 10 mg-pyridoxine (vit B6) 10 mg tablet,delayed release (Diclegis) 1 tab PO TID #90 tabs 01/26/25 [Rx Confirmed 06/24/25] Intake Visit Data Collection New Patient or Established: Established Patient (seen at [facility] within 3 years) Reason for Visit:: CARE Seen by Clinical Staff ONLY (RN/MA): No Svp Business Development Required: No Do You Feel Safe at Home: Yes Authorities Contacted: N/A PCP or OBGYN visit in last 3 months: Yes Hx Now: Yes Are you currently on any form of Control: No Pain Present Currently: No Pain Scale Used: Ayala-Anglin/Numerical Pain scale:: 0 Smoking Status Smoking Status: Never smoker Questionnaires Covid-19 Vaccine Questionnaire Has patient been vacinated for Covid-19 Have you been vacinated for Covid-19: Yes PHQ-9 PHQ-2 Over the last 2 weeks, how often have you been bothered by any of the following problems? 1. Little interest or pleasure in doing things: not at all 2. Feeling down, depressed, or hopeless: not at all Total score: 0 PHQ-9 3. Trouble falling or staying asleep, or sleeping too much: Not at all 4. Feeling tired or having little energy: Not at all 5. Poor appetite or overeating: Not at all 6. Feeling bad about yourself - or that you are a failure or have let yourself or your family down: Not at all 7. Trouble concentrating on things, such as reading the newspaper or watching television: Not at all 8. Moving or speaking so slowly that other people could have noticed? - Or the opposite - being so fidgety or restless that you have been moving around a lot more than usual: not at all 9. Thoughts that you would be better off or of hurting yourself in some way: Not at all Total score: 0 Source: Developed by Drs. Tj Bernal, Dory Mir, Manas Whitehead and colleagues, with an educational jessica from [employer]. 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 Smoking Status: Never smoker Second Hand Smoke Exposure: No Alcohol History Alcohol Intake: Former Alcohol Intake Frequency: holidays/special occasions only Alcohol Intake Frequency Other:: [id number] Substance Use History Substance Use: no Domestic Abuse History Do You Feel Safe at Home: Yes TALENT REP: Past Medical History Past Medical History: No Hx Hypothyroidism, No Hx Hyperthyroidism, No Hx Breast Cancer, No Hx Anemia, No Hx Renal Disease, No Hx Diabetes Mellitus Type 1, No Hx Diabetes Mellitus Type 2 and No Hx Polycystic Ovarian Syndrome Care OB Visit Log OB Flowsheet Initial Weight: Not Recorded Date -?-?-?-?-?-?-?-?-?-?-?-?- EGA Weight BP Alb Glu CTX Pres Fundal ht FHR Mov Dilation Station Effacement Hx Notes Visit Note 12/15/24 -?-?-?-?-?-?-?-?-?-?-?-?- 9w 0d 44.962 kg 105/76 absent 140 01/09/25 -?-?-?-?-?-?-?-?-?-?-?-?- 12w 4d 44.225 kg 100/68 12 154 02/05/25 -?-?-?-?-?-?-?-?-?-?-?-?- 16w 3d 46.266 kg 105/72 17 145 active 03/11/25 -?-?-?-?-?-?-?-?-?-?-?-?- 21w 2d 47.797 kg 109/68 21 137 active Still taking Diclegis at nighttime but nausea much better 05/22/25 -?-?-?-?-?-?-?-?-?-?-?-?- 31w 4d 50.462 kg 97/61 absent 32 active +FM, No UCs or LOF US for size at 35 weeks 06/03/25 -?-?-?-?-?-?-?-?-?-?-?-?- 33w 2d 53.524 kg 109/68 absent 33 134 ac timiriam Complains of low back pain. Reports nausea is better but she is still taking the Diclegis at nighttime. OB sono for growth was done at [facility] yesterday. Reports pending. Denies leaking. Denies bleeding. Denies contractions. Reports good movement Follow-up with Blanca Merritt in 2 weeks. Increase fluids. Discussed comfort measures for backache. Continue Diclegis. Return in 2 weeks Follow-up with Dr. Cesar in 2 weeks. Increase fluids. Discussed comfort measures for backache. Continue Diclegis. Return in 2 weeks 06/17/25 -?-?-?-?-?-?-?-?-?-?-?-?- 35w 2d 54.034 kg 108/72 occasional 35 156 active Good movement no contractions or bleeding Group B strep done. Patient declined that exam. 06/24/25 -?-?-?-?-?-?-?-?-?-?-?-?- 36w 2d 54.488 kg 111/73 occasional cephalic 35 156 active +FM, No UCs, LOF. Declines exam today GBBS Negativ e DEDRA Calculator Estimated Delivery Date Method Current WG Current Estimate 07/20/25 Ultrasound #1 36w 2d Other Estimates 07/21/25 LMP (Certain) 36w 1d Expected Delivery Route/Plan History of vaginal delivery x 2 in the past with epidurals. Anticipate Specific Issue/Plans Need structural Survey from [facility] on chart Notes Visit Date: 06/24/25 Last Updated by: Yasmine Cesar ([facility] Clinic)MD Doing well. VTX on US Visit Date: 06/17/25 Last Updated by: Yasmine Cesar ([facility] Clinic)MD -0-0-2 status post vaginal delivery x 2. Epidural x 2. No complications. Babies weighed 6 and 7 pounds. Glucose challenge test at [facility]. Visit Date: 06/03/25 Last Updated by: Yasmine Cesar ([facility] Clinic)MD [facility] [place] reviewed from 06/02/2025 single intrauterine in the cephalic presentation no placenta previa placenta is anterior DEVON 13.7 EGA 33-5/7 weeks EDC 07/16/2025on US john mated weight 2215g 62nd percentile. anatomy normal gender is female. Visit Date: 05/22/25 Last Updated by: Yasmine Cesar (OB Clinic)MD PNC labs from 03/19/25 on chart: O+/Ab-/RI/RPR NR/HIV-/HepBSag-/GC-/Chlam-/Hgb 11.4/Hct 35.3 Urine Visit Date: 03/11/25 Last Updated by: Yasmine Cesar (OB Clinic)MD Patient tried to get labs drawn but the form was filled out 1. She will go to [facility] in [place] and form is filled out correctly today. She had an ultrasound in [place] at [facility] and I do not have the results yet this was from 03/02/2025. Visit Date: 02/05/25 Last Updated by: Yasmine Cesar ([facility] Clinic)MD Pt reports good FM. Finally has less nausea and vomiting No complaints Office Procedures OB Clinic LOC & Office Proc's Nursing/Assessment Patient Status: Established Patient OB Clinic Nursing Assessment: Medication Reconciliation, Update PMH in EMR and Vital Signs OB Clinic Coordination of Care: Complex Care and Chronic Disease 1-5, Consent,records obtained, informed consent, Lab and Imaging orders, Results/Orders obtained and Staff clarify orders Special Needs: Heart tones Established Patient Charge Established Patient Point Assignment: 120 Established Patient Point Charge: EP Level 4 (120-155)
== END 2025-06-24 08:51 | disposition home or self-care (01) ==
LOC: HODSOBC 08:12
PROVIDERS: Supervising Provider Obstetrics & Gynecology; Visit Provider Obstetrics & Gynecology
DX: Z34.83 Encounter for supervision of other normal pregnancy, third trimester (principal); Z3A.36 36 weeks gestation of pregnancy
CPT/HCPCS: 99214; G0463

== ENCOUNTER 2025-07-01 13:01 | Outpatient (AMB) | payer BC, SELFPAY ==
[2025-07-01 13:13] VITALS: BP 112/73; PULSE 90; RESP 17; TEMP 36.5; O2SAT 99; BMI 23.8
--- NOTE | 2025-07-01 13:13 | AMB.OBVISIT ---
Vital Signs 07/01/25 13:13 Height 1.52 m Height Method Measured Weight 55.111 kg Weight Measurement Method Standing Scale BMI 23.8 BP 112/73 Blood Pressure Source Automatic Cuff Blood Pressure Location Right Upper Arm Position Sitting Respiration 17 Pulse 90 Pulse Source Monitor Temp 97.7 F Temp Source Temporal Artery Scan Pulse Oximetry (%) 99 Oxygen Delivery Method Room Air Allergies/Home Meds Allergies & Medications Allergies No Known Allergies Allergy (Verified 07/01/25 13:14) Medication Reconciliation ondansetron HCl 4 mg tablet 4 mg PO Q6H PRN nausea and vomiting #30 tabs 12/15/24 [Rx Confirmed 07/01/25] promethazine 12.5 mg tablet 12.5 mg PO Q4H PRN nausea and vomiting #20 tabs 12/15/24 [Rx Confirmed 07/01/25] doxylamine 10 mg-pyridoxine (vit B6) 10 mg tablet,delayed release (Diclegis) 1 tab PO TID #90 tabs 01/26/25 [Rx Confirmed 07/01/25] Intake Visit Data Collection New Patient or Established: Established Patient (seen at [facility] within 3 years) Reason for Visit:: C Consent obtained for Telemed Visit: No Seen by Clinical Staff ONLY (RN/MA): No Aerosol Line Operator Required: No Do You Feel Safe at Home: Yes Authorities Contacted: N/A PCP or OBGYN visit in last 3 months: Yes Date of Last PCP or OBGYN visit: 06/24/25 Are you currently on any form of Control: Yes Pain Present Currently: No Pain Scale Used: Ayala-Anglin/Numerical Pain scale:: 0 Smoking Status Smoking Status: Never smoker Questionnaires Covid-19 Vaccine Questionnaire Has patient been vacinated for Covid-19 Have you been vacinated for Covid-19: Yes PHQ-9 PHQ-2 Over the last 2 weeks, how often have you been bothered by any of the following problems? 1. Little interest or pleasure in doing things: not at all PHQ-9 8. Moving or speaking so slowly that other people could have noticed? - Or the opposite - being so fidgety or restless that you have been moving around a lot more than usual: not at all Source: Developed by Drs. Tj Bernal, Dory Mir, Manas Whitehead and colleagues, with an educational jessica from [employer]. 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: Past Medical History Past Medical History: No Hx Hypothyroidism, No Hx Hyperthyroidism, No Hx Breast Cancer, No Hx Anemia, No Hx Renal Disease, No Hx Diabetes Mellitus Type 1, No Hx Diabetes Mellitus Type 2 and No Hx Polycystic Ovarian Syndrome Care OB Visit Log OB Flowsheet Initial Weight: Not Recorded Date <del>?</del> EGA Weight BP Alb Glu CTX Pres Fundal ht FHR Mov Dilation Station Effacement Hx Notes Visit Note 12/15/24 <del>?</del> 9w 0d 44.962 kg 105/76 absent 140 01/09/25 <del>?</del> 12w 4d 44.225 kg 100/68 12 154 02/05/25 <del>?</del> 16w 3d 46.266 kg 105/72 17 145 active 03/11/25 <del>?</del> 21w 2d 47.797 kg 109/68 21 137 active Still taking Diclegis at nighttime but nausea much better 05/22/25 <del>?</del> 31w 4d 50.462 kg 97/61 absent 32 active +FM, No UCs or LOF US for size at 35 weeks 06/03/25 <del>?</del> 33w 2d 53.524 kg 109/68 absent 33 134 active Complains of low back pain. Reports nausea is better but she is still taking the Diclegis at nighttime. OB sono for growth was done at [facility] yesterday. Reports pending. Denies leaking. Denies bleeding. Denies contractions. Reports good movement Follow-up with Dr. Merritt in 2 weeks. Increase fluids. Discussed comfort measures for backache. Continue Diclegis. Return in 2 weeks Follow-up with Dr. Cesar in 2 weeks. Increase fluids. Discussed comfort measures for backache. Continue Diclegis. Return in 2 weeks 06/17/25 <del>?</del> 35w 2d 54.034 kg 108/72 occasional 35 156 active Good movement no contractions or bleeding Group B strep done. Patient declined that exam. 06/24/25 <del>?</del> 36w 2d 54.488 kg 111/73 occasional cephalic 35 156 active +FM, No UCs, LOF. Declines exam today GBBS Negative DEDRA Calculator Estimated Delivery Date Method Current WG Current Estimate 07/20/25 Ultrasound #1 37w 2d Other Estimates 07/21/25 LMP (Certain) 37w 1d Expected Delivery Route/Plan History of vaginal delivery x 2 in the past with epidurals. Anticipate Specific Issue/Plans Need structural Survey from [facility] on chart Notes Visit Date: 06/24/25 Last Updated by: Yasmine Cesar ([facility] Clinic)MD Doing well. VTX on US Visit Date: 06/17/25 Last Updated by: Yasmine Cesar ([facility] Clinic)MD -0-0-2 status post vaginal delivery x 2. Epidural x 2. No complications. Babies weighed 6 and 7 pounds. Glucose challenge test at [facility] 113. Visit Date: 06/03/25 Last Updated by: Yasmine Cesar ([facility] Clinic)MD Ultrasound from [facility] imaging in [place] reviewed from 06/02/2025 single intrauterine in the cephalic presentation no placenta previa placenta is anterior DEVON 13.7 EGA 33-5/7 weeks EDC 07/16/2025on US estimated weight 2215g 62nd percentile. anatomy normal gender is female. Visit Date: 05/22/25 Last Updated by: Yasmine Cesar ([facility] Clinic)MD PNC labs from 03/19/25 on chart: O+/Ab-/RI/RPR NR/HIV-/HepBSag-/GC-/Chlam-/Hgb 11.4/Hct 35.3 Urine Visit Date: 03/11/25 Last Updated by: Yasmine Cesar ([facility] Clinic)MD Patient tried to get labs drawn but the form was filled out 1. She will go to [facility] in [place] and form is filled out correctly today. She had an ultrasound in [place] at [facility] and I do not have the results yet this was from 03/02/2025. Visit Date: 02/05/25 Last Updated by: Yasmine Cesar ([facility] Clinic)MD Pt reports good FM. Finally has less nausea and vomiting No complaints Office Procedures OB Clinic LOC & Office Proc's Nursing/Assessment Patient Status: Established Patient OB Clinic Nursing Assessment: Medication Reconciliation, Update PMH in EMR and Vital Signs OB Clinic Coordination of Care: Complex Care and Chronic Disease 1-5, Consent,records obtained, informed consent and Education Simp Pt/Fam Special Needs: Heart tones Established Patient Charge Established Patient Point Assignment: 105 Established Patient Point Charge: EP Level 3 (80-115)
== END 2025-07-01 13:39 | disposition home or self-care (01) ==
LOC: HODSOBC 13:01
PROVIDERS: Supervising Provider Obstetrics & Gynecology; Visit Provider Obstetrics & Gynecology
DX: Z34.93 Encounter for supervision of normal pregnancy, unspecified, third trimester (principal)
CPT/HCPCS: 99213; G0463

== ENCOUNTER 2025-07-13 13:09 | Outpatient (AMB) | payer BC, SELFPAY ==
[2025-07-13 13:04] VITALS: BP 119/81; PULSE 89; RESP 18; TEMP 36.5; O2SAT 99; BMI 23.8
--- NOTE | 2025-07-13 13:04 | OBCLNT_ITS ---
Vital Signs 07/13/25 13:04 Height 1.52 m Height Method Stated Weight 54.998 kg Weight Measurement Method Standing Scale BMI 23.8 BP 119/81 Blood Pressure Source Automatic Cuff Blood Pressure Location Left Upper Arm Position Sitting Respiration 18 Pulse 89 Pulse Source Monitor Temp 97.7 F Temp Source Oral Pulse Oximetry (%) 99 Oxygen Delivery Method Room Air Allergies/Home Meds Allergies & Medications Allergies No Known Allergies Allergy (Verified 07/13/25 13:10) Medication Reconciliation ondansetron HCl 4 mg tablet 4 mg PO Q6H PRN nausea and vomiting #30 tabs 12/15/24 [Rx Confirmed 07/13/25] promethazine 12.5 mg tablet 12.5 mg PO Q4H PRN nausea and vomiting #20 tabs 12/15/24 [Rx Confirmed 07/13/25] doxylamine 10 mg-pyridoxine (vit B6) 10 mg tablet,delayed release (Diclegis) 1 tab PO TID #90 tabs 01/26/25 [Rx Confirmed 07/13/25] Intake Visit Data Collection New Patient or Established: Established Patient (seen at [facility] within 3 years) Reason for Visit:: CARE Seen by Clinical Staff ONLY (RN/MA): No Locomotive Mechanic Required: No Do You Feel Safe at Home: Yes Authorities Contacted: N/A PCP or OBGYN visit in last 3 months: Yes Hx Now: Yes Are you currently on any form of Control: No Pain Present Currently: No Pain Scale Used: Ayala-Anglin/Numerical Pain scale:: 0 Smoking Status Smoking Status: Never smoker Questionnaires Covid-19 Vaccine Questionnaire Has patient been vacinated for Covid-19 Have you been vacinated for Covid-19: Yes PHQ-9 PHQ-2 Over the last 2 weeks, how often have you been bothered by any of the following problems? 1. Little interest or pleasure in doing things: not at all 2. Feeling down, depressed, or hopeless: not at all Total score: 0 PHQ-9 3. Trouble falling or staying asleep, or sleeping too much: Not at all 4. Feeling tired or having little energy: Not at all 5. Poor appetite or overeating: Not at all 6. Feeling bad about yourself - or that you are a failure or have let yourself or your family down: Not at all 7. Trouble concentrating on things, such as reading the newspaper or watching television: Not at all 8. Moving or speaking so slowly that other people could have noticed? - Or the opposite - being so fidgety or restless that you have been moving around a lot more than usual: not at all 9. Thoughts that you would be better off or of hurting yourself in some way: Not at all Total score: 0 Source: Developed by Drs. Tj Bernal, Dory Mir, Manas Whitehead and colleagues, with an educational jessica from [employer]. 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: Past Medical History Past Medical History: No Hx Hypothyroidism, No Hx Hyperthyroidism, No Hx Breast Cancer, No Hx Anemia, No Hx Renal Disease, No Hx Diabetes Mellitus Type 1, No Hx Diabetes Mellitus Type 2 and No Hx Polycystic Ovarian Syndrome Care OB Visit Log OB Flowsheet Initial Weight: Not Recorded Date -?-?-?-?-?-?-?-?-?-?-?-?- EGA Weight BP Alb Glu CTX Pres Fundal ht FHR Mov Dilation Station Effacement Hx Notes Visit Note 12/15/24 -?-?-?-?-?-?-?-?-?-?-?-?- 9w 0d 44.962 kg 105/76 absent 140 01/09/25 -?-?-?-?-?-?-?-?-?-?-?-?- 12w 4d 44.225 kg 100/68 12 154 02/05/25 -?-?-?-?-?-?-?-?-?-?-?-?- 16w 3d 46.266 kg 105/72 17 145 active 03/11/25 -?-?-?-?-?-?-?-?-?-?-?-?- 21w 2d 47.797 kg 109/68 21 137 active Still taking Diclegis at nighttime but nausea much better 05/22/25 -?-?-?-?-?-?-?-?-?-?-?-?- 31w 4d 50.462 kg 97/61 absent 32 active +FM, No UCs or LOF US for size at 35 weeks 06/03/25 -?-?-?-?-?-?-?-?-?-?-?-?- 33w 2d 53.524 kg 109/68 absent 33 134 ac timiriam Complains of low back pain. Reports nausea is better but she is still taking the Diclegis at nighttime. OB sono for growth was done at [facility] yesterday. Reports pending. Denies leaking. Denies bleeding. Denies contractions. Reports good movement Follow-up with Blanca Merritt in 2 weeks. Increase fluids. Discussed comfort measures for backache. Continue Diclegis. Return in 2 weeks Follow-up with Dr. Cesar in 2 weeks. Increase fluids. Discussed comfort measures for backache. Continue Diclegis. Return in 2 weeks 06/17/25 -?-?-?-?-?-?-?-?-?-?-?-?- 35w 2d 54.034 kg 108/72 occasional 35 156 active Good movement no contractions or bleeding Group B strep done. Patient declined that exam. 06/24/25 -?-?-?-?-?-?-?-?-?-?-?-?- 36w 2d 54.488 kg 111/73 occasional cephalic 35 156 active +FM, No UCs, LOF. Declines exam today GBBS Negativ e 07/13/25 -?-?-?-?-?-?-?-?-?-?-?-?- 39w 0d 54.998 kg 119/81 occasional cephalic 37 137 active 3.5 -2 80 +FM, NO LOF or VB Declined membra ne strip DEDRA Calculator Estimated Delivery Date Method Current WG Current Estimate 07/20/25 Ultrasound #1 39w 0d Other Estimates 07/21/25 LMP (Certain) 38w 6d Expected Delivery Route/Plan 30 y/o History of vaginal delivery x 2 in the past with epidurals. Anticipate Specific Issue/Plans Need structural Survey from [facility] on chart Notes Visit Date: 07/13/25 Last Updated by: Yasmine Cesar ([facility] Clinic)MD Labor precautions. Desires epidural Visit Date: 06/24/25 Last Updated by: Yasmine Cesar ([facility] Clinic)MD Doing well. VTX on US Visit Date: 06/17/25 Last Updated by: Yasmine Cesar ([facility])MD -0-0-2 status post vaginal delivery x 2. Epidural x 2. No complications. Babies weighed 6 and 7 pounds. Glucose challenge test at [facility]. Visit Date: 06/03/25 Last Updated by: Yasmine Cesar ([facility] Clinic)MD [facility] [place] reviewed from 06/02/2025 single intrauterine in the cephalic presentation no placenta previa placenta is anterior DEVON 13.7 EGA 33-5/7 weeks EDC 07/16/2025on US estimated weight 2215g 62nd percentile. anatomy normal gender is female. Visit Date: 05/22/25 Last Updated by: Yasmine Cesar ([facility] Clinic)MD PNC labs from 03/19/25 on chart: O+/Ab-/RI/RPR NR/HIV-/HepBSag-/GC-/Chlam-/Hgb 11.4/Hct 35.3 Urine Visit Date: 03/11/25 Last Updated by: Yasmine Sarmiento[facility])MD Patient tried to get labs drawn but the form was filled out 1. She will go to [facility] in [place] and form is filled out correctly today. She had an ultrasound in [place] at [facility] and I do not have the results yet this was from 03/02/2025. Visit Date: 02/05/25 Last Updated by: Yasmine Cesar ([facility] Clinic)MD Pt reports good FM. Finally has less nausea and vomiting No complaints Office Procedures OB Clinic LOC & Office Proc's Nursing/Assessment Patient Status: Established Patient OB Clinic Nursing Assessment: Medication Reconciliation, Update PMH in EMR and Vital Signs OB Clinic Coordination of Care: Complex Care and Chronic Disease 1-5, Consent,records obtained, informed consent, Education Simp Pt/Fam, Lab and Imaging orders, Results/Orders obtained and Staff clarify orders Special Needs: Heart tones Established Patient Charge Established Patient Point Assignment: 135 Established Patient Point Charge: EP Level 4 (120-155) Assessment & Plan Diagnosis / Problem List (1) : Status: Acute Qualifiers: Weeks of gestation: 39 weeks Qualified Code(s): Z3A.39 - 39 weeks gestation of Plan: Labor precautions. Discussed kick counts. Follow-up in 1 week.
== END 2025-07-13 13:52 | disposition home or self-care (01) ==
LOC: HODSOBC 13:09
PROVIDERS: Supervising Provider Obstetrics & Gynecology; Visit Provider Obstetrics & Gynecology
DX: Z34.83 Encounter for supervision of other normal pregnancy, third trimester (principal); Z3A.39 39 weeks gestation of pregnancy
CPT/HCPCS: 99214; G0463

== ENCOUNTER 2025-07-14 02:46 | Inpatient (IN) | payer BC, SELFPAY ==
[2025-07-14] VITALS (130 sets, daily range): BP systolic 98–233; BP diastolic 48–163; PULSE 46–125; RESP 16–100; TEMP 36.7–37.7; O2SAT 59–100; BMI 23.6
[2025-07-14] MEDS: RINGERS LACTATED 1000 ML 1,000 ML 100 ML IV (03:41)
[2025-07-14 04:02] LABS: Basophils # (Auto) 0.1 Thou/mm3 (0.0-0.2); Basophils % (Auto) 1 % (0-2.5); Eosinophils # (Auto) 0.1 Thou/mm3 (0.0-0.5); Eosinophils % (Auto) 1 % (0-10); Hematocrit 39.4 % (36.0-46.0); Hemoglobin 13.2 g/dL (12.0-16.0); Immature Granulocytes Auto 0.04 Thou/mm3 (0.00-0.00); Lymphocytes # (Auto) 2.6 Thou/mm3 (1.0-4.8); Lymphocytes % (Auto) 27 % (10-50); Mean Corpuscular HGB Conc 33.5 g/dl (31.0-37.0); Mean Corpuscular Hemoglobin 30.3 pg (25.0-35.0); Mean Corpuscular Volume 91 fL (80-100); Monocytes # (Auto) 0.6 Thou/mm3 (0.0-0.8); Monocytes % (Auto) 6 % (0-12); Neutrophils # (Auto) 6.2 Thou/mm3 (1.8-7.7); Neutrophils % (Auto) 65 % (37-80); Nucleated Red Blood Cell # 0.00 Thou/mm3 (0.00-0.00); Nucleated Red Blood Cell % 0 /100 WBC (0); Platelet Count 161 Thou/mm3 (140-440); RDW Standard Deviation 47.0 fL (36.4-46.3); Red Blood Count 4.35 Miln/mm3 (4.00-5.20); White Blood Count 9.5 Thou/mm3 (3.6-11.0)
--- NOTE | 2025-07-14 04:20 | PD.LDHP ---
Documentation for date of: 07/14/25 OB Labor/Induct. HPI History of Present Illness Chief complaint: Labor : 3 Para: 2 Term pregnancies: 2 pregnancies: 0 Living children: 2 History of Abortions: Spontaneous and Elective: 0 History of Vaginal deliveries: 2 History of sections: No History of : No Date of last menstrual period: 10/14/24 DEDRA: 07/20/25 Gestational Age (weeks): 39 Gestational Age (days): 1 Gestational age based on last menstrual period: 39 History of present illness: The patient is a 30-year-old -0-0-2 presents in active labor 5 cm dilated. Group B strep is negative. All care uncomplicated with [place] [facility] and Dr. Nicky Cesar. Patient's group B strep is negative. She desires epidural. History of Present Dating criteria: LMP confirmed by 1st trimester US Adequate Care: Yes Ultrasounds: normal 1st trimester US and normal mid trimester US Obstetrical complications: none Medical complications: none Labs Maternal Blood Type: O Pos Labs: Positive: Rubella Titre, Negative: RPR, Hepatitis B and HIV and Unknown: Chlamydia, Gonorrhea, Herpes Type 1, Herpes Type 2, Group Beta Strep (Documented group B strep negative in my notes. No report available.) and Covid-19 Review of Systems Review of Systems Narrative Review of Systems: Patient reports contractions, no loss of fluids no vaginal bleeding Past Medical History Surgical History SURGICAL: Negative Section Past Medical History Comments PMH COMMENT: Patient has no significant chronic medical problems. Patient has no significant surgical history. She has had 2 uncomplicated vaginal deliveries in the past. Meds Home Medications and Allergies Home Medications ?Medication ?Instructions ?Recorded ?Confirmed ?Type vits no.130-ferrous fum 1 tab PO QDAY 07/14/25 07/14/25 History 27 mg iron-folic acid 800 mcg tablet ( Vitamin) Allergies Allergy/AdvReac Type Severity Reaction Status Date / Time No Known Allergies Allergy Verified 07/14/25 03:54 OB Exam Physical Exam Vital signs: Temp Pulse Resp BP Pulse Ox O2 Del Method 98.4 F 67 16 110/68 100 Nasal Cannula 07/14/25 02:50 07/14/25 04:07 07/14/25 03:17 07/14/25 04:07 07/14/25 04:07 07/14/25 02:48 Detailed Labor and Delivery Exam Dilation (cm): 5 Effacement (%): 80 Cervix position: posterior station: -2 Consistency: soft Presentation: Vertex Membranes: intact Baseline heart rate: 140 monitor accelerations: 15x15 monitor decelerations: None nursing home variability: Moderate (11-25) Contraction frequency (min): Every 5 minutes Tachysystole: No Contraction intensity: Moderate OB Results Labs 07/14/25 03:10 Labs: Short CBC 07/14/25 Range/Units 03:10 WBC 9.5 (3.6-11.0) Thou/mm3 Hgb 13.2 (12.0-16.0) g/dL Hct 39.4 (36.0-46.0) % Plt Count 161 (140-440) Thou/mm3 OB Assessment & Plan Assessment and Plan (1) : Status: Acute (2) Encounter for supervision of high risk in third trimester, antepartum: Status: Acute Assessment and plan: Admit patient. She desires epidural. Then AROM or Pitocin augmentation if the patient does not progress. Additional Plan Induction method: AROM Plan: augmentation and anticipate NVD (1) Qualifiers: Weeks of gestation: 39 weeks Qualified Code(s): Z3A.39 - 39 weeks gestation of
[2025-07-14 04:40] LABS: Syphilis Nonreactive (Nonreactive)
[2025-07-14] MEDS: OXYTOCIN in NS 20 units 20 UNIT/1,000 ML BAG 125 UNIT IV (07:10)
[2025-07-14] MEDS: METHYLERGONOVINE INJ 0.2 MG/ML VIAL IM (07:15)
[2025-07-14] MEDS: IBUPROFEN TAB 400 MG TABLET 800 MG PO ×2 (07:19→19:26)
[2025-07-14] MEDS: BENZO/LANO/ALOE (Dermoplast) 60 GM CAN 1 SPRAY TOP (07:22)
--- NOTE | 2025-07-14 07:47 | XR_ITS ---
Examination: AP chest single view Technique one AP portable upright chest single view Date and time: July 14, 2025, 0004 hrs. Indications: Shortness of breath today. Findings: No significant cardiac enlargement. No aspiration pneumonia or pulmonary edema. The osseous structures are intact. Impression: No aspiration pneumonia or pulmonary edema.
--- NOTE | 2025-07-14 07:50 | EKG_ITS ---
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
[2025-07-14] MEDS: FUROSEMIDE INJ 10 MG/ML VIAL 2 ML 20 MG IVP (08:04)
[2025-07-14] MEDS: DEXTROSE 5%-LACTATED RINGERS 1,000 ML 100 ML IV (08:12)
[2025-07-14] MEDS: ACETAMINOPHEN 325 MG TABLET 650 MG PO (13:45)
[2025-07-14 17:33] LABS: Basophils # (Auto) 0.0 Thou/mm3 (0.0-0.2); Basophils % (Auto) 0 % (0-2.5); Eosinophils # (Auto) 0.0 Thou/mm3 (0.0-0.5); Eosinophils % (Auto) 0 % (0-10); Hematocrit 35.3 % (36.0-46.0); Hemoglobin 12.1 g/dL (12.0-16.0); Immature Granulocytes Auto 0.06 Thou/mm3 (0.00-0.00); Lymphocytes # (Auto) 1.7 Thou/mm3 (1.0-4.8); Lymphocytes % (Auto) 14 % (10-50); Mean Corpuscular HGB Conc 34.3 g/dl (31.0-37.0); Mean Corpuscular Hemoglobin 30.9 pg (25.0-35.0); Mean Corpuscular Volume 90 fL (80-100); Monocytes # (Auto) 0.7 Thou/mm3 (0.0-0.8); Monocytes % (Auto) 6 % (0-12); Neutrophils # (Auto) 9.7 Thou/mm3 (1.8-7.7); Neutrophils % (Auto) 79 % (37-80); Nucleated Red Blood Cell # 0.00 Thou/mm3 (0.00-0.00); Nucleated Red Blood Cell % 0 /100 WBC (0); Platelet Count 130 Thou/mm3 (140-440); RDW Standard Deviation 45.5 fL (36.4-46.3); Red Blood Count 3.92 Miln/mm3 (4.00-5.20); White Blood Count 12.2 Thou/mm3 (3.6-11.0)
[2025-07-15 03:58] VITALS: BP 100/62; PULSE 58; RESP 16; TEMP 36.4; O2SAT 96
[2025-07-15 08:00] VITALS: BP 99/64; PULSE 67; RESP 16; TEMP 36.6; O2SAT 96
--- NOTE | 2025-07-15 12:14 | PD.LDDELS ---
Data ([place]) Data Hx Section: No Maternal Blood Type: O Pos Rubella Titre: Positive RPR: Non-reactive Labs: Negative: RPR, Hepatitis B, HIV, Chlamydia, Gonorrhea and Group Beta Strep : 3 Term: 2 : 0 Livin Abortions: Spontaneous & Theraputic: 0 Delivery Data ([place]) Labor Data Initiation of labor: Spontaneous Induction/Augmentation Agent: Artificial ROM ROM date: 07/14/25 ROM time: 05:07 Amniotic membrane rupture type: Artificial Amniotic fluid description: Clear Delivery Data EDC: 07/20/25 EDC calculated by:: LMP/early US confirmation Date of arrival to unit: 07/14/25 Time of arrival to unit: 03:00 Onset of labor date: 07/14/25 Onset of labor time: 01:30 Complete dilation date: 07/14/25 Complete dilation time: 06:15 [place] delivery date: 07/14/25 [place] delivery time: 06:56 Gestational age (weeks): 39 Gestational age (days): 1 Placenta delivery date: 07/14/25 Placenta delivery time: 07:03 Stage 1 total time: Labor - Stage 1 Duration 4 hours and 45 minutes Delivered by: MANJINDER Delivery nurse: Kurt Neworn nurse: [email or web address] Ball Racker at delivery: No Support person(s) at delivery: father of baby Delivery Method Delivery method: Normal Vaginal Delivery Presentation: Vertex position: OA Anesthesia Type Anesthesia Type: Epidural Delivery Room Medications Delivery room medications: Methergine 0.2 mg IM, Pitocin 20 u IV and Cytotec 800 TN Placenta Placenta delivery description: Spontaneous Cord blood sent to lab: Yes cord blood collection: Cord Blood Type Episiotomy Episiotomy description: None Lacerations #1: Perineal: 1st degree Perineal repair Sutures used for repair: 4.0 Chromic EBL Estimated blood loss (ml): 350 Umbilical Cord cord description: 3 Vessels Additional Procedures The patient is a 30-year-old -0-0-2 with all care uncomplicated with Dr. Nicky Cesar with [facility] who presented to triage triage around 3:00 in the morning reporting active labor on 07/14/2025. Patient was 5 cm dilated on presentation she was admitted and had labor epidural placed. Her bag beard was ruptured approximately 0530 in the morning and she was 7 to 8 cm. She rapidly progressed to complete and pushed approximately 20 minutes delivering a liveborn female at 0703 am. Findings: Liveborn female in the JDU presentation with no nuchal cord and no meconium. Baby did have a short cord. Apgars were 9 and 9. Weight was 7 pounds 1 ounce. The baby was vigorous and placed on mom's chest immediately after and delayed cord clamping was performed for approximately 2 minutes. The baby's cord was clamped and cut and the baby was kept on mother's chest. Cord blood was collected cord gases were saved. The placenta was then then spontaneous complete grossly normal delivering approximately 5 minutes after the baby delivered. Patient sustained a very small first-degree perineal laceration repaired using 4-0 chromic in a running locked fashion. EBL was 350 cc. Patient was given Methergine and Cytotec secondary to some bleeding right after delivery and then her uterus firmed up nicely. Condition: both mom and were in stable condition the delivery room. Complications Complications: None [place] Data ([place]) [place] Data order: 1 's gender: Female Identification band number: [id number] weight (gms): 3205 g Weight (pounds): 7 lbs and 1.1 ozs length: 52 cm 1 minute: 9 5 minutes: 9
--- NOTE | 2025-07-15 12:58 | PD.LDPPPRG ---
Subjective Subjective Interval history: The patient is a 30-year-old G3 now P3003 day #1 status post vaginal delivery on 07/14/2025 at approximately 7:00 in the morning. Patient did get quite hypoglycemic after delivery but today she feels fine. She will cross her liver function test to be checked because she states she feels yellow no nausea vomiting heavy vaginal bleeding. Patient is breast-feeding and resting comfortably in bed tolerating a general diet. Her bleeding has been minimal she would like to go home. Exam Vital Signs Temp Pulse Resp BP Pulse Ox O2 Del Method 97.9 F 67 16 99/64 96 Room Air 07/15/25 08:00 07/15/25 08:00 07/15/25 08:00 07/15/25 08:00 07/15/25 08:00 07/15/25 08:00 Narrative Exam Patient is alert and orient x 3 in no apparent distress fundus is firm above umbilicus extremities show no significant edema or erythema Objective Labs 07/14/25 16:59 07/15/25 11:32 Labs: Laboratory Results - last 24 hr 07/14/25 16:59 WBC 12.2 H RBC 3.92 L Hgb 12.1 Hct 35.3 L MCV 90 MCH 30.9 MCHC 34.3 RDW Std Deviation 45.5 Plt Count 130 L D Neut % (Auto) 79 Lymph % (Auto) 14 [place] % (Auto) 6 Eos % (Auto) 0 Baso % (Auto) 0 Neut # (Auto) 9.7 H Lymph # (Auto) 1.7 [place] # (Auto) 0.7 Eos # (Auto) 0.0 Baso # (Auto) 0.0 Immature Gran # (Auto) 0.06 H Absolute Nucleated RBC 0.00 Immature Gran % 1 H Nucleated RBC % 0 Assessment & Plan Problem List (1) care following vaginal delivery: Problem details: The patient is doing well. Will discharge home today in stable condition. Status: Acute Time Spent With Patient Time: Total time spent is greater than 50% in coordination of care (as documented) at patient's floor/unit and/or counseling patient: Time with patient: less than 15 minutes
--- NOTE | 2025-07-15 13:02 | PD.LDDS ---
DS: Providers Provider Date of admission: 07/14/25 03:27 Primary care physician: Physician No Primary/Family Admitting Provider: Yasmine Cesar MD ([facility] Clinic) Attending Provider on Admission: Lv Monk MD Consults: 07/14/25 07:48 Referral Routine Comment: 07/14/25 10:51 Referral Routine Comment: Attending Provider on DC: Yasmine Cesar MD ([facility]) Discharging Provider: Yasmine Cesar MD ([facility] Clinic) Anticipated date of discharge: 07/15/25 DS: Diagnosis Discharge Diagnosis (1) care following vaginal delivery: Status: Acute Assessment & Plan: Patient is doing well day #1 discharged home in stable condition. Problem List Completed Was Problem List Reviewed/Reconciled?: Yes Summary/Hosp Course Brief History: The patient is a 30-year-old -0-0-2 presents in active labor 5 cm dilated. Group B strep is negative. All care uncomplicated with [place] [facility] and Dr. Nicky Cesar. Patient's group B strep is negative. She desires epidural. Please see history and physical for further details. Patient underwent an uncomplicated vaginal delivery about 7:00 in the morning on 07/14/2025. EBL was 350 cc. She had a small first-degree perineal laceration. Please see delivery note for further details Her course was uncomplicated. Patient was voiding tolerating a general diet ambulating and her vital signs were stable. Her hemoglobin was stable pre and postdelivery. Her vital signs were stable. She was discharged home post day #1 in stable condition Peripartum Data Delivery Method: Normal Vaginal Delivery Episiotomy Description: None complications: none Status at Discharge Cognitive/behavioral status at discharge: Alert and oriented x 3 no apparent distress Functional status at discharge: independent ambulation Overall status at discharge: patient is progressing back to baseline Time Spent with Patient Time attestation: Total time spent providing and/or coordinating discharge services: Time spent: Less than 30 minutes Specific discharge activities: Pelvic rest x 6 weeks Exam Vital Signs Temp Pulse Resp BP Pulse Ox O2 Del Method 97.9 F 67 16 99/64 96 Room Air 07/15/25 08:00 07/15/25 08:00 07/15/25 08:00 07/15/25 08:00 07/15/25 08:00 07/15/25 08:00 Narrative Exam Patient is alert and oriented x 3 in no apparent distress. Fundus is firm at umbilicus. Extremities show no significant edema or erythema Discharge Plan Plan Patient Disposition: HOME (Self Care) Disposition Comment: Stable Patient condition on transfer: Stable Prescriptions/Referrals Prescriptions/Med Rec: New ibuprofen 400 mg Tablet 800 mg PO Q8H PRN (Reason: See Comments) Qty: 60 0RF Discontinued doxylamine-pyridoxine (vit B6) [Diclegis] 10-10 mg tablet,delayed release (DR/EC) 1 tab PO TID Qty: 90 2RF No Action ondansetron HCl 4 mg tablet 4 mg PO Q6H PRN (Reason: nausea and vomiting) Qty: 30 0RF promethazine 12.5 mg tablet 12.5 mg PO Q4H MDD 50 mg PRN (Reason: nausea and vomiting) Qty: 20 0RF Vitamin 27 mg iron- 800 mcg tablet 1 tab PO QDAY Referrals: No Primary/Family,Physician [Primary Care Provider] Patient/Caregiver Discharge Instructions Discharge Activity: activity as tolerated Other Discharge Activity Instructions:: Pelvic rest x 6 weeks Other Discharge Diet Instructions: General diet. Eat lots of calories while breast-feeding and drink lots of water Education Materials: After Delivery Concerns Print Language: Upper Sorbian Activity Restrictions/Additional Instructions: Call for heavy bleeding, fevers of 101 ?F or higher, or severe depression follow-up in 6 weeks Stand Alone Forms: Natalya Award Info., Patient Portal Info Letter Discharge Order Discharge Orders: Discharge (Routine); Ordered 07/15/25 Ordered By: Yasmine Cesar (OB Clinic) Planned Discharge Date 07/15/25
[2025-07-15 14:07] LABS: Alanine Aminotransferase 32 U/L (10-49); Albumin, Serum 2.8 gm/dL (3.5-5.0); Albumin/Globulin Ratio 1.5 (1.2-2.2); Alkaline Phosphatase 240 U/L (46-116); Anion Gap 7 (7-16); Aspartate Amino Transferase 36 U/L (0-34); BUN/Creatinine Ratio 7 Ratio (12-20); Bilirubin,Total 0.4 mg/dL (0.3-1.2); Blood Urea Nitrogen 6 mg/dL (9-23); Calcium 8.7 mg/dL (8.3-10.6); Calcium (Corrected) 9.7 mg/dL (8.5-10.1); Carbon Dioxide 30.2 mMol/L (20.0-31.0); Chloride 105 mMol/L (98-107); Creatinine (Component) 0.9 mg/dL (0.6-1.3); Estimated Creatinine Clearance 68.3 mL/min (>60); Globulin 1.9 gm/dL (2.3-3.5); Glucose 72 mg/dL (74-106); Osmolality,Calculated 279 (275-295); Potassium 3.3 mMol/L (3.4-5.1); Sodium 142 mMol/L (136-145); Total Protein 4.7 gm/dL (5.7-8.2); eGFR > 60 See Note
== END 2025-07-15 15:20 | disposition home or self-care (01) | DRG 807 ==
LOC: S4SX 09:32 → S4NX 10:27
PROVIDERS: Admitting Provider Obstetrics & Gynecology; Visit Provider Obstetrics & Gynecology
DX: O69.3XX0 Labor and delivery complicated by short cord, not applicable or unspecified (principal); Z37.0 Single live birth; Z3A.39 39 weeks gestation of pregnancy; O70.0 First degree perineal laceration during delivery; O99.285 Endocrine, nutritional and metabolic diseases complicating the puerperium; E16.2 Hypoglycemia, unspecified
CPT/HCPCS: 36415; 59025; 59409; 71045; 80053; 85025; 86780; 86850; 86900; 86901; 93005; 94762; J1938; J2210; J2590; J2795; J7120; J7121; S0191; A9270

== ENCOUNTER 2025-08-25 09:25 | Outpatient (AMB) | payer BC, SELFPAY ==
[2025-08-25 09:36] VITALS: BP 100/64; PULSE 99; RESP 16; TEMP 36.2; O2SAT 98
--- NOTE | 2025-08-25 09:36 | AMB.OBPP ---
Vital Signs 08/25/25 09:36 Weight 46.947 kg Weight Measurement Method Standing Scale BP 100/64 Blood Pressure Source Automatic Cuff Blood Pressure Location Left Upper Arm Position Sitting Respiration 16 Pulse 99 Pulse Source Monitor Temp 97.2 F Temp Source Oral Pulse Oximetry (%) 98 Oxygen Delivery Method Room Air Allergies/Home Meds Allergies & Medications Allergies No Known Allergies Allergy (Verified 08/25/25 09:37) Medication Reconciliation ondansetron HCl 4 mg tablet 4 mg PO Q6H PRN nausea and vomiting #30 tabs 12/15/24 [Rx Confirmed 08/25/25] promethazine 12.5 mg tablet 12.5 mg PO Q4H PRN nausea and vomiting #20 tabs 12/15/24 [Rx Confirmed 08/25/25] vits no.130-ferrous fum 27 mg iron-folic acid 800 mcg tablet ( Vitamin) 1 tab PO QDAY 07/14/25 [History Confirmed 08/25/25] ibuprofen 400 mg tablet 800 mg (2 x 400 mg) PO Q8H PRN See Comments #60 tabs 07/15/25 [Rx Confirmed 08/25/25] Intake Visit Data Collection New Patient or Established: Established Patient (seen at [facility] within 3 years) Reason for Visit:: Seen by Clinical Staff ONLY (RN/MA): No Mental Health Clinician Required: No Do You Feel Safe at Home: Yes Authorities Contacted: N/A PCP or OBGYN visit in last 3 months: Yes Date of Last PCP or OBGYN visit: 07/15/25 Hx Now: Yes Are you currently on any form of Control: No Pain Present Currently: No Pain Scale Used: [place]/Numerical Pain scale:: 0 Smoking Status Smoking Status: Never smoker Immunizations Flu Vaccine in the Last 12 Months: No Flu Vaccine Exclusion Criteria: No Exclusion Criteria ORDER ENTRY: Past Medical History Past Medical History: No Hx Neurological Disorders, No Hx Hypothyroidism, No Hx Hyperthyroidism, No Hx Breast Cancer, No Hx Cardiac Disorders, No Hx Cancer, No Hx Blood Disorders, No Hx Anemia, No Hx Gastrointestinal Disorders, No Hx Renal Disease, No Hx Diabetes Mellitus Type 1, No Hx Diabetes Mellitus Type 2 and No Hx Polycystic Ovarian Syndrome Questionnaires Social History Living Situation History Marital Status: Lives With: Family Housing: House Housing Other:: 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 Tobacco History Smoking Status: Never smoker Second Hand Smoke Exposure: No Alcohol History Alcohol Intake: Never Alcohol Intake Frequency: holidays/special occasions only Alcohol Intake Frequency Other:: [id number] Substance Use History Substance Use: no Domestic Abuse History Do You Feel Safe at Home: Yes EPDS - PP Depression Screening [employer] Pospartum Depression Screen I have been able to laugh and see the funny side of things: (0) As much as I always could I have looked forward with enjoyment to things: (0) As much as I ever did I have blamed myself unnecessarily when things went wrong: (0) No, never I have been anxious or worried for no good reason: (0) No, not at all I have felt scared or panicky for no very good reason: (0) No, not at all Things have been getting on top of me: (0) No, I have been coping as well as ever I have been so unhappy that I have had difficulty sleeping: (0) No, not at all I have felt sad or miserable: (0) No, not at all I have been so unhappy that I have been crying: (0) No, never The thought of harming myself has occurred to me: (0) Never Total Score: EPDS Score: Referral is indicated for score of 9 or more, suicidal, or if provider believes patient is depressed regardless of score.: 0 EPDS completed yes HPI Interval History: Reina Rios presents for her visit approximately 6 weeks following normal vaginal delivery on July 14, 2025. She reports that she is feeling good overall and that her baby is doing great. She is currently and believes that any stitches she received have healed properly. The patient is requesting a doctor's note to continue her leave from work, specifically mentioning that she has 12 weeks of baby bonding time available. She does not want control prescriptions as she does not like taking them, noting that her is making an appointment, presumably for vasectomy. The patient delivered a healthy female on July 14, 2025 via spontaneous vaginal delivery. She received stitches and reports good healing. She is a 30-year-old female with an obstetric history of G1 T1 L1. The patient is and lives with her and daughter. She is currently on maternity leave with plans to return to work, has 12 weeks of baby bonding leave available. ROS: Negative except as stated above, limited to ORDER ENTRY and pertinent complaints. Exam General General Appearance: alert, in no apparent distress and healthy appearing Head Head exam: atraumatic Neck Neck exam: Present normal inspection and trachea midline Chest Chest inspection: Present normal inspection and symmetric chest wall rise External exam: Present normal external exam; Absent tenderness Neuro Neurological exam: Present oriented X3 Psych Psychiatric exam: Present normal affect and normal mood Office Procedures [facility] Clinic LOC & Office Proc's Nursing/Assessment Patient Status: Established Patient OB Clinic Nursing Assessment: Medication Reconciliation, Update PMH in EMR and Vital Signs OB Clinic Coordination of Care: Consent,records obtained, informed consent, Education Simp Pt/Fam, Lab and Imaging orders, Results/Orders obtained and Staff clarify orders Established Patient Charge Established Patient Point Assignment: 80 Established Patient Point Charge: EP Level 3 (80-115) Assessment & Plan Diagnosis / Problem List (1) care following vaginal delivery: Status: Acute Plan Status: - Patient is approximately 6 weeks following normal vaginal delivery on July 14, 2025. - Reports feeling good with apparent healing of perineal repair. - Baby is doing well and patient is successfully . Plan: - Provide work clearance documentation indicating completion of recovery period. - Provide additional medical documentation for extended leave if needed per employer requirements. Work Leave Documentation Request: - Patient requests medical documentation to support continuation of maternity leave. 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 - Bonding time typically does not require medical certification. Plan: - Provide two separate notes: one clearing patient to return to work after completing period, and one providing additional time off if medically necessary. - Advise patient to use additional documentation only if required. Contraceptive Counseling: - Patient does not desire hormonal contraception as is planning vasectomy. Plan: - No contraceptive intervention needed at this time given planned vasectomy.
== END 2025-08-25 10:11 | disposition home or self-care (01) ==
LOC: HODSOBC 09:25
PROVIDERS: Supervising Provider Obstetrics & Gynecology; Visit Provider Obstetrics & Gynecology
DX: Z39.2 Encounter for routine postpartum follow-up (principal)
CPT/HCPCS: 99213; G0463